=== PATIENT | male | born 2000 | race Caucasian/White ===

== ENCOUNTER 2019-05-27 18:10 | Emergency (ER) | payer BC ==
--- NOTE | 2019-05-27 18:40 | ER Document Report ---
ED Medical Screen (RME) - General Stated Complaint: LACERATION/LEFT HAND Time Seen by Provider: 05/27/19 18:36 Primary Care Provider: NESTOR STAPLETON [Primary Care Provider] - Follow up as needed Notes: 18-year-old male presented to ED for laceration between the thumb and index finger on his left hand. He states he was working outside when his hand slipped using a straight leg cut between his thumb and second finger. He states he had a tetanus about 2 or 3 years ago when he got bit by a dog in the face. He does not smoke drink or use any illicit drugs and he lives with his mother. 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 Patient is alert oriented respirations regular and unlabored and bleeding is under control. I have greeted and performed a rapid initial assessment of this patient. A comprehensive ED assessment and evaluation of the patient, analysis of test results and completion of medical decision making process will be conducted by an additional ED providers. Physical Exam - Vital signs Vitals: Temp Pulse Resp BP Pulse Ox 99.8 F 84 18 131/81 H 98 05/27/19 18:21 05/27/19 18:21 05/27/19 18:21 05/27/19 18:21 05/27/19 18:21 Course - Vital Signs Vital signs: Temp Pulse Resp BP Pulse Ox 99.8 F 84 18 131/81 H 98 05/27/19 18:21 05/27/19 18:21 05/27/19 18:21 05/27/19 18:21 05/27/19 18:21 Doctor's Discharge - Discharge Referrals: NESTOR STAPLETON [Primary Care Provider] - Follow up as needed
[2019-05-27] MEDS ORDERED: LIDOCAINE 1% INJ-PF (10 MG/ML) 30 ML SDV INJ ONE (19:59)
--- NOTE | 2019-05-27 20:03 | ER Document Report ---
HPI - HPI Time Seen by Provider: 05/27/19 18:36 Pain Level: 2 Notes: Patient is a 18-year-old male with no significant past medical history presents complaining laceration between his first and second finger of his left hand by a knife prior to arrival. Patient states his tetanus is up-to-date within the last 5 years. He is able to move his fingers without difficulty. Patient states that the bleeding has been well controlled with the gauze and compression wrap. Denies drug allergies. No other concerns or complaints. Denies any headache, fever, URI, sore throat, chest pain, palpitations, syncope, cough, shortness of breath, wheeze, dyspnea, abdominal pain, nausea/vomiting/diarrhea, urinary retention, dysuria, hematuria, numbness/tingling, muscle paralysis/weakness, or rash. - ROS Systems Reviewed and Negative: Yes All other systems reviewed and negative - CONSTITUTIONAL Constitutional: DENIES: Fever, Chills - EENT EENT: DENIES: Sore Throat, Ear Pain, Eye problems Past Medical History - Social History Smoking Status: Never Smoker Chew tobacco use (# tins/day): No Frequency of alcohol use: None Drug Abuse: None Family History: Reviewed & Not Pertinent Patient has suicidal ideation: No Patient has homicidal ideation: No Vertical Provider Document - CONSTITUTIONAL Agree With Documented VS: Yes Notes: PHYSICAL EXAMINATION: GENERAL: Well-appearing, well-nourished and in no acute distress. HEAD: Atraumatic, normocephalic. NECK: Normal range of motion, supple without lymphadenopathy. No midline tenderness. LUNGS: Breath sounds clear to auscultation bilaterally and equal. No wheezes rales or rhonchi. HEART: Regular rate and rhythm without murmurs, rubs, gallops. Musculoskeletal: Lt hand: No erythema, warmth, ecchymosis, deformity, or swelling noted. N/V intact distal. FROM to passive/active at the fingers. Strength 5+/5. No scaphoid tenderness. No other bony tenderness. + 3cm superficial linear laceration noted. Minimal active bleeding. Extremities: No cyanosis, clubbing, or edema b/l. Peripheral pulses 2+. Capillary refill less than 3 seconds. NEUROLOGICAL: Normal speech, normal gait. Normal sensory, motor exams otherwise unremarkable PSYCH: Normal mood, normal affect. SKIN: see above. No rash - INFECTION CONTROL TRAVEL OUTSIDE OF THE [place] IN LAST 30 DAYS: No Course - Re-evaluation Re-evalutation: 05/27/19 20:41 Patient is an afebrile, well-hydrated, 18yo male who presents to the ED with a laceration to his left hand requiring suture repair. Vitals are acceptable. PE is otherwise unremarkable for any neurovascular compromise, obvious tendon/ligament rupture, obvious fracture/dislocation, septic joint. Patient is nontoxic-appearing and is tolerating p.o. without difficulties. Wound was thoroughly irrigated and cleansed. Wound edges were approximated appropriately utilizing 5 simple interrupted sutures. Wound dressing was placed and wound instructions reviewed. Patient tolerated procedure well without any complications. No further labs or imaging warranted. Sutures will need removed in 10 days. Recheck with your PCM in 2-3 days. Consider consult orthopedics if needed. Return to the ED with any worsening/concerning symptoms otherwise as reviewed in discharge. Patient is in agreement. - Vital Signs Vital signs: Temp Pulse Resp BP Pulse Ox 99.8 F 84 18 131/81 H 98 05/27/19 18:21 05/27/19 18:21 05/27/19 18:21 05/27/19 18:21 05/27/19 18:21 Procedures - Laceration/Wound Repair Left Hand Wound length (cm): 3 Wound's Depth, Shape: Superficial, Linear Laceration pre-procedure: Sterile PPE donned, Sterile drapes applied, Other - chlorhexadine/saline Anesthetic type: 1% Lidocaine w/epi Volume Anesthetic (mLs): 4 Wound explored: Clean, No foreign body removed Irrigated w/ Saline (mLs): 200 Wound Repaired With: Sutures Suture Size/Type: 4:0, Nylon Number of Sutures: 5 Layer Closure?: No Post-procedure wound care: Sterile dressing applied Post-procedure NV exam normal: Yes Complications: No Discharge - Discharge Clinical Impression: Laceration of left hand Qualifiers: Encounter type: initial encounter Foreign body presence: without foreign body Qualified Code(s): S61.412A - Laceration without foreign body of left hand, initial encounter Condition: Stable Disposition: HOME, SELF-CARE Instructions: Soap Cleansing ([facility]), Antibiotic Ointment Protection ([facility]) Additional Instructions: Do not shower or bathe for 24 hours. After 24 hours you may shower but no submersion of the wound under water. Keep the original dressing on the wound for 24 hours unless the drainage soaks through. Change the dressing daily thereafter and keep the knots of the suture material clean from any dried discharge. You may leave the wound open to the air once there is no more discharge. See your PCM in 2-3 days for a recheck. Monitor for any signs of worsening pain or redness, purulent drainage, streaks, and/or fever. Return to the ED if noticing any of the above symptoms or as needed. Take medications as directed. Your sutures will need to be removed in 10 days. Prescriptions: Amox Tr/Potassium Clavulanate [Augmentin 875-125 Tablet] 1 tab PO BID #10 tablet Forms: Elevated Blood Pressure Referrals: [facility] [Provider Group] - Follow up as needed
[2019-05-27] MEDS ORDERED: LIDOCAINE 1%/EPINEPHRINE INJ 20 ML VIAL ONE (20:25)
[2019-05-27 21:20] VITALS: BP 116/77
== END 2019-05-27 21:10 | disposition home or self-care (01) ==
LOC: ER 18:10
DX: S61.412A Laceration without foreign body of left hand, initial encounter (principal); W26.0XXA Contact with knife, initial encounter
CPT/HCPCS: 99282; 12002; J3490 ×2